=== PATIENT | female | born 1950 | race African-American/Black ===

== ENCOUNTER 2019-04-16 13:30 | Inpatient (IN) | payer OTHER ==
[~2019-04-16] VITALS: Ht 157.5 cm; Wt 75.1 kg
[2019-04-16 13:38] VITALS: BP 107/60
[2019-04-16 14:35] LABS: URINE BILIRUBIN NEGATIVE (Negative); URINE BLOOD NEGATIVE (Negative); URINE CLARITY CLEAR; URINE COLOR YELLOW; URINE GLUCOSE-RANDOM* NEGATIVE (Negative); URINE KETONES NEGATIVE (Negative); URINE LEUKOCYTES-REFLEX NEGATIVE (Negative); URINE NITRITE-REFLEX NEGATIVE (Negative); URINE PROTEIN (DIPSTICK) NEGATIVE (Negative); URINE UROBILINOGEN 0.2 E.U./dl (0.2-1.0)
[2019-04-16 14:39] LABS: ABSOLUTE NEUTROPHILS 3.9 thou/uL (1.4-8.2); BASOPHILS 0.7 % (0.0-2.0); EOSINOPHILS 2.1 % (0.0-3.0); HEMATOCRIT 34.6 % (37.0-47.0); HEMOGLOBIN 11.1 gm/dL (12.0-15.0); LYMPHOCYTES 15.7 % (24.0-44.0); MCH 24.2 pg (26.0-34.0); MCHC 32.1 g/dL (28.0-37.0); MCV 75.3 fL (80.0-100.0); PLATELET COUNT 286 thou/uL (150-400); POLYS 69.5 % (36.0-66.0); RDW 14.5 % (10.5-14.5); WBC 5.7 thou/uL (4.0-11.0)
[2019-04-16 14:50] LABS: CALCIUM 10.1 mg/dL (8.5-10.1); CREATININE 1.2 mg/dL (0.6-1.0); POTASSIUM 3.8 mmol/L (3.5-5.1)
[2019-04-16 14:55] LABS: ALBUMIN 3.6 g/dL (3.4-5.0); TOTAL BILIRUBIN 0.2 mg/dL (<0.1-1.0); TOTAL PROTEIN 7.2 g/dL (6.4-8.2)
[2019-04-16] MEDS ORDERED: CELEXA 20 MG TA20 MG PO ×3 (15:10→17:03)
[2019-04-16] MEDS ORDERED: HYDROCHLOROTHIA25 M2 PO ×2 (15:11→16:59)
[2019-04-16] MEDS ORDERED: DILTIAZEM ER180 M2 PO (15:11)
[2019-04-16] MEDS ORDERED: ESTRADIOL 1 MG T1 M1 PO ×2 (15:11→17:01)
[2019-04-16] MEDS ORDERED: KLOR-CON M2020 MEQ PO (15:12)
[2019-04-16] MEDS ORDERED: BENICAR40 MG PO (15:12)
[2019-04-16 15:25] VITALS: BP 125/63
[2019-04-16 15:38] VITALS: BP 125/63
--- NOTE | 2019-04-16 16:35 | NUR ---
Patient transported from emergency room via cart. Patient ambulatory. Patient takes medications whole. Patient in good spirits, calm and cooperative. Patient denies pain. Patient denies audible or visual hallucinations. Patient signed consents. Patients assessment reveals clear breath sounds, active bowel sounds, and s1 s2 heard upon auscultation.
[2019-04-16] MEDS ORDERED: ALPRAZOLAM XR3 MG PO (16:57)
[2019-04-16] MEDS ORDERED: LOSARTAN POTAS100 MG PO (17:00)
[2019-04-16] MEDS ORDERED: CARTIA XT300 M1 PO (17:02)
[2019-04-16] MEDS ORDERED: MULTIPLE VITAM1 EAC2 PO (17:29)
[2019-04-16] MEDS ORDERED: ATIVAN1 M1 PO (17:30)
[2019-04-16 20:10] VITALS: BP 131/53
[2019-04-16 20:11] VITALS: BP 131/53
--- NOTE | 2019-04-17 04:25 | NUR ---
1909-Report received from day shift nurse and care assumed. She was soft spoken, compliant with Vital signs, and assessment.She had no c.o. voiced, no c.o. pain, flat affect, calm. She had Ativan 1 mg. po prn at HS per her request, and she was up in the night a few times to toilet, slept well generally. Stand by assist. A/O x4.
[2019-04-17 08:06] VITALS: BP 112/47
--- NOTE | 2019-04-17 08:26 | EKG ---
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
[2019-04-17] MEDS ORDERED: PREDNISOLONE ACE5 ML RT. EYE (11:39)
[2019-04-17 16:31] LABS: FOLIC ACID 17.9 ng/mL (8.6-58.9); TSH 2.781 uIU/mL (0.358-3.740)
[2019-04-17 19:33] VITALS: BP 141/69
--- NOTE | 2019-04-17 20:36 | NUR ---
Lying in bed without s/o distress. States she is waiting for breakfast. Alert and orientated X4. Denies pain, SI/HI. Breath sounds clear t/o, bilaterally equal. Color pink with brisk capillary refill and palpable peripheral pulses. Active bowel sounds over soft, rounded abdomen. Voiding independently. Able to ambulate around unit without difficulty. 0.5 cm nodule to roof of mouth. States she has had it a long time. 0930 RT reports that patient is feeling light headed and lying on couch in day room. BP 112/47. No s/o distress with brisk capillary refill and strong pulse. Reassured and encouraged to increase PO intake. 1100 Up in unit without s/o distress. Repeat BP 110/47 with O2 sat 100% on RA when probe placed on toe. 1600 Family here visiting. States she is feeling nauseated. 4 mg ondansetron given per PRN order. Prednisilone gtt given per R eye. States she has missed a couple of days of doses. Will resume BID dosing. 1900 Up ambulating in unit and in room. No s/o distress.
--- NOTE | 2019-04-18 01:11 | NUR ---
ASSUMED CARE ON 04/17/19 @ ABOUT 19:30, UP IN CHAIR AT THE TABLE IN THE DAY ROOM. AMBULATES TO HER BEDROOM, AND THEN BACK TO THE DAY ROOM. STEADY GAIT NOTED, NO DEVISE UTILIZED. UP AD ARTUR. COOPERATED WITH ASSESSMENT AND HS MEDS. REQUESTED ANXIETY MEDS. NEW ORDER OBTAINED FOR VISTARIL 50MG PO Q 4 HOURS. ADMINISTERED @ APROXIMATELY 23:30. REPORTS HAD BM TODAY, ABD SOUNDS NORMOACTIVE X 4 Q, HRRR, LUNGS CTA. IN BED EYES CLOSED, RESPIRATIONS EVEN AND UNLABORED. BED IN LOW POSITION, BED ALARM SET, WILL CONTINUE TO MONITOR Q 12 MINUTES FOR PATIENT SAFETY.
[2019-04-18 02:13] VITALS: BP 141/69
--- NOTE | 2019-04-18 06:19 | NUR ---
SLEPT 8.8 HOURS OVERNIGHT.
[2019-04-18 07:45] VITALS: BP 148/75
--- NOTE | 2019-04-18 13:21 | NUR ---
HAS BEEN WITHDRAWN TO ROOM FOR MAJORITY OF SHIFT-DID COME OUT FOR PM GROUP WITH PROMPTING. COOPERATIVE-AFFECT CONSTRICTED-SOMEWHAT GUARDED DURING 1;1 INTERACTION WITH THIS RN-DENIES SI/SH/HI-RATES ANXIETY "ABOUT A 4" ON 1-10 SCALE AND DENIES NEED FOR PRN VISTARIL WHEN OFFERED WITH AM MEDICATIONS. BP WNL AND IS COOOPERATIVE WITH TAKING SCHEDULED BP MEDICATIONS, GAIT STEADY WITHOUT ASSISITIVE DEVICES. ATE FAIR AT BREAKFAST BUT AT APPROX 1045 REQUESTED ZOFRAN FO4 NAUSEA-ZOFRAN 4MGODT GIVEN AND DOES REPORT DECCREASED NAUSEA IN APPROX 30 MINUTES UPON REASSESS.
--- NOTE | 2019-04-18 17:09 | NUR ---
Pt's son Judah's phone number is incorrect in the system. The correct number is [phone]. KENNETH contacted Judah and received background information. Pt is and has been since 1992. She has 2 sons; one son (Stanley) her relationship is estranged from. 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 She has a close relationship with her granddaughter Dodie. 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 She also is very involved in her restoration; the restoration she practices is Zoroastrianism. She has her Master's degree, and has 4 other siblings. Judah is planning to take his mom to live with him upon discharge. KENNETH scheduled a family meeting for 04/22 @ 0570. KENNETH team will continue to follow pt during her stay.
[2019-04-18 19:25] VITALS: BP 114/62
--- NOTE | 2019-04-18 19:58 | NUR ---
ASSUMED CARE ON 04.18.19 @ APROXIMATELY 19:15, IN BED AWAKENS TO VOICE. COOPERATES WITH ASSESSMENT, HRRR, LUNGS CTA, ABD N X 4 Q REPORTS BM GTODAY. DENIES SI AND HI, SAYING NEVER. DENIES HALLUCINATIONS, BOTH VH AND AH WELL PAIN. REPORTS ANXIETY IS MANAGEABLE. WE DISCUSSED THE MEDICATION CHANGE MADE TODAY, AND PT DENIES ANY ADVERSE EFFECTS TO MEDS. LAID BACK DOWN IN BED AFTER ASSESSMENT, AND REQUESTED THE LIGHTS BE TURNED OFF, WHICH WAS DONE.
[2019-04-19 00:19] VITALS: BP 114/62
--- NOTE | 2019-04-19 05:16 | NUR ---
SLEPT 11 HOURS OVERNIGHT. EXPERIENCED NAUSEA AND REQUESTED ZOFRAN 4MG ODT, WHICH WAS PROVIDED AND A STOOL SOFTENER.
[2019-04-19 09:21] VITALS: BP 151/77
--- NOTE | 2019-04-19 16:59 | NUR ---
Up ambulating in unit without s/o distress. States she is nauseated off and on. Very upset this AM because she was told it was 15 and she thought she missed her son's birthday. Once told it was 04/19 she calmed down and stated that she wanted to follow the program and get better. Alert and orientated X 4. Compliant with meds. Denies pain, SI/HI. Breath sounds clear t/o, bilaterally equal. Reg HR auscultated. Color pink with brisk capillary refill and palpable peripheral pulses. Voiding independently. Active bowel sounds over soft, rounded abdomen. Eye drop instilled per R eye without diff. 1500 Sw changed privacy code to 3770 d/t family/pt request. States relative received code that they should not have. 1700 Sitting at table eating dinner without s/o distress.
[2019-04-19 19:46] VITALS: BP 115/76
--- NOTE | 2019-04-19 22:46 | H ---
[facility] [place] [address] HISTORY AND PHYSICAL Name: MADELAINE SERVIN Room #: 528A-A ADM IN M.R.#: [id number] Admission: 04/16/19 Attend Phys: Derek Hernandez DO Discharge: Date of : 50 Report #: [id number] THIS REPORT FOR: //name// CC: Derek Hernandez Sedrick Donahuelauro DATE OF SERVICE: 04/17/2019 INPATIENT PSYCHIATRIC EVALUATION ATTENDING PHYSICIAN: Derek Hernandez DO. EMERGENCY MEDICINE PHYSICIAN: Tri Forbes APRN. REASON FOR ADMISSION: Increasing depression, difficulty with daily functioning, and concerns for an emerging major neurocognitive disorder. SOURCES OF INFORMATION: Emergency room records, interview with the patient, telephone conversation with the sonJudah, and office records from Dr. Graff. HISTORY OF PRESENT ILLNESS: This is a 69-year-old female, who is having her first admission on a senior behavioral health unit at [facility]. The patient reports that she has had a roughly 1-week history of nausea, weakness, and inability to recover. She is rather vague on accompanying symptoms. The patient was seen 04/15/[address] Graff. On his visit, there was intense nausea, concerns about memory, depression, anxiety, and dizziness and was given Zofran and potassium in the emergency room. CURRENT MEDICATIONS: Ativan 1 mg p.o. at bedtime for sleep, citalopram hydrobromide 20 mg p.o. daily, hydrochlorothiazide 25 mg p.o. daily, losartan potassium 100 mg p.o. daily, Cartia 300 mg XR 24-hour capsule daily, and CoQ. Additional information from the ER assessment, severe anxiety, panic attacks to the point feels like she is going to , so goes to ER. LABORATORY DATA: From the 04/15/2019, creatinine 1.2, EGFR 57.4. Sodium 138, potassium 3.3, chloride 99, and bicarbonate 24. Protein is 7.7, alkaline phosphatase 65, AST 18, and ALT 14. B12 1734. Folate 16.8. TSH 1.57. Sed rate 20. H and H is 7.6 and 36.4, white count is 6.4, and platelet count 336. Urinalysis was negative. Additional information from our ER, the patient reports decreased appetite, but states her son has been having her drink protein shakes. Son reports that this is her third ER visit and lab results have all been normal. The patient denies any recent trauma or significant distress. She states "it kind of came out of [address] [address] HISTORY AND PHYSICAL Name: MADELAINE SERVIN Room #: [address] [place] [address] [place] .R.#: [id number] Admission: 04/16/19 Attend Phys: Derek Hernandez DO Discharge: Date of : 50 Report #: [id number]." She reports she has been having trouble with memory loss. The son states the memory loss dates back at least a year. She states it is frustrating, but not sure "if it is frustrating enough to make me feel as depressed." The patient's son states the physician started her on citalopram 5 days ago. On interview today, she denied suicidal or homicidal ideation or auditory, visual, or tactile hallucinations. I performed the Geriatric Depression Scale. She was positive for 5 which would be indicative of a mild depression at most. I performed a [facility] Mental Status examination. The patient scored a 12/30, so she is in moderate dementia range on that. I explained to the patient that this would warrant further workup with the neuropsychologist. The son states that lab work and neuroimaging has been done by her primary care physician and other ERs. PAST MEDICAL HISTORY: Includes hypertension, depression, and bilateral cataract removal. She is currently on prednisolone acetate for the inflammation post-surgery. This is in her right eye. REVIEW OF SYSTEMS: From ER: CONSTITUTIONAL: Negative for fever or chills. EYES: Negative for eye pain or visual change. HENT: Negative for rhinorrhea or sore throat. RESPIRATORY: Negative for cough or shortness of breath. CARDIOVASCULAR: Negative for chest pain or palpitations. GASTROINTESTINAL: Negative for abdominal pain, vomiting, or diarrhea. GENITOURINARY: Negative for burning, urgency, frequency, or hematuria. MUSCULOSKELETAL: Negative for back pain or muscle pain. SKIN: Negative for any rashes. NEUROLOGICAL: Negative for numbness, tingling, or weakness. Otherwise, 10-point review of systems was negative. EKG in the ER was sinus rhythm, rate of 64, normal axis, and no acute changes. Laboratories from our ER, sodium 141, potassium 3.8, chloride 103, bicarbonate 27, estimated GFR 54, glucose 108, calcium 10.1, total bilirubin is 0.2, AST 15, ALT 25, albumin 3.6, total protein is 7.2, and lipase 171. White count 5.7, H and H 7.1 and 34.6, and platelet count 286,000. Urinalysis was negative. SOCIAL HISTORY: Denied alcohol, tobacco, or recreational drug use in the past. Reports she has a master's degree. 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 Unclear how long she has been retired. She has several children, several other siblings. I believe she is , but not 100% on that. PHYSICAL EXAMINATION: Slow gait. Normal station. [facility] [address] [place] [address] HISTORY AND PHYSICAL Name: MADELAINE SERVIN Room #: 528A-A ADM IN M.R.#: [id number] Admission: 04/16/19 Attend Phys: Derek Hernandez DO Discharge: Date of : 50 Report #: [id number] MENTAL STATUS EXAMINATION: This is a well-developed and slightly disheveled black female, appearing at least stated age. Attention limited. Concentration limited. Speech slow and normal volume. Thought process is linear and goal directed. Thought content, relative poverty of thought. Some psychomotor retardation. No psychomotor agitation. Mood was down. Affect congruent, constricted, and diminished range. Denied SI or HI. Denied hopelessness and helplessness. Denied the homicidal intent or plan. Memory impaired as she only got 2/5 on 5-item recall. She had other impairments in attention and executive function for a total score of 12/30 on [facility] Mental Status exam. FORMULATION: A 69-year-old black female, brought by son in the emergency room after office visit with Dr. Graff. Case is suspicious for an evolving major neurocognitive disorder. 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 Comorbidities include nausea, acute renal failure and holding hydrochlorothiazide, constipation, hypertension, recent cataract surgery 02/2019, thought it was more recent. PLAN: Evaluate, stabilize, and obtain collateral. According to the son, routine dementia labs and head imaging have already been done. I will put in a consultation for Dr. Ward for neuropsychological testing. I warned the son that the base outcome of this admission may just be the need for a 24/7 assistance and care. Time spent on interview, evaluation, review of records, and coordination of care is at least 60 minutes. STRENGTHS: She is insured, supportive family. WEAKNESSES: Advancing age, likely neurodegenerative disorder. <ELECTRONICALLY SIGNED> By: Derek Hernandez DO 04/19/19 2246 [id number] 1747 Derek Hernandez DO /nt
--- NOTE | 2019-04-19 23:31 | NUR ---
PATIENT APPROACHED THE NURSES STATION REQUESTING PRN NAUSEA MEDICATION. THIS NURSE ADMINISTERED ORDERED. THIS NURSE INQUIRED WHAT TRIGGERS PATIENTS NAUSEA SX. THIS NURSE ASKED, ANXIETY, PAIN? PATIENT RESPONDED "IM NOT SURE ITS KIND OF WHY I AM HERE." WILL CONTINUE TO MONITOR PATIENT.
--- NOTE | 2019-04-20 01:15 | NUR ---
Care assumed of patient at 1915: Patient sleeping in bed at start of shift. Patient easily aroused. Woke up for nursing assessment with no issue. Calm, pleasant and cooperative. Alert and oriented x3. Disoriented to current situation. Patient states that she has been having difficulty with nausea and so she was admitted to the hospital to be "worked up". Patient denies any anxiety or depression. Denies SI/HI/AH/VH. No s/s of delusional or paranoia behaviors. Originally denied nausea during assessment but approached nurses station at approximately 2320 to report nausea but denied any vomiting. Requested PRN Zofran and was provided at 2329. Patient took HS medication whole without difficulty. Presented with flat, blunted affect. Poor eye contact. Isolative and withdrawn to her room this evening. Declined HS snack. Denies pain or discomfort. Patient has been able to rest quietly this shift.
[2019-04-20 05:39] VITALS: BP 147/69
[2019-04-20 09:06] VITALS: BP 135/69
--- NOTE | 2019-04-20 14:54 | NUR ---
LESS WITHDRAWN THIS SHIFT COMPARED TO PREVIOUS DAYS ON UNIT-CAME OUT OF ROOM WITH 1 PROMPT FOR AM GROUP AND STAYED OUT FOR CHIEFS GAME THIS PM. INCREASE IN SPONTANEOUS SMILING AND EXPRESSION STATING "I REALLY LIKE WATCHING THE FOOTBALL GAMES"DURING AM ASSESSMENT DENIES C/O PAIN/DISCOMFORT. NO REPORTED NAUSEA OR BOWEL ISSUES OTHER THAN TO STATE "I WENT A LOT-I DON'T THINK I NEED TO GO FOR AWHILE" DOES REPORT SHE BELIEVES IT IS WHEN HER ESTRADIAL WAS STOPPED THAT DEPRESSION AND ANXIETY BECAME PROBLEMATIC-"I HAD TO BEG TO GET EVEN A LITTLE BACK BUT IT ISN;T ENOUGH"
[2019-04-20 19:54] VITALS: BP 149/79
[2019-04-20 22:44] VITALS: BP 149/79
--- NOTE | 2019-04-21 04:15 | NUR ---
PT ISOLATED IN ROOM FOR THE BULK OF THE EVENING. QUIET AND COOPERATIVE. PROVIDED EYE DROPS AT HS. SLEPT WELL THROUGH THE NIGHT W/O PROBLEM. SEEMS DEPRESSED BUT DID SMILE ONE TIME SPONTANEOUSLY, WHE WE WERE CHATTING.
--- NOTE | 2019-04-21 07:00 | NUR ---
Assumed care of patient this am. Patient in bedroom resting. Patient states that she was having some nausea. Patient ambulates without assistance. Patient takes medications whole. Patients affect is soft and happy. Patients assessment reveals clear breath sounds, hypoactive bowel sounds, and s1 s2 heard with auscultation.
[2019-04-21 07:30] VITALS: BP 152/77
[2019-04-21 07:57] VITALS: BP 152/77
[2019-04-21 14:32] LABS: POTASSIUM 3.4 mmol/L (3.5-5.1)
[2019-04-21 19:41] VITALS: BP 115/50
[2019-04-21 20:00] VITALS: BP 115/50
--- NOTE | 2019-04-22 02:02 | NUR ---
PATIENT WAS AWOKEN SUDDENLY FROM A LOUD NOISE AT 1914 LAST NIGHT. SHE STATES SHE BECAME IMMEDIATELY NAUSEATED. ZOFRAN 4MG DISINGRATING PILL GIVEN AND SOME LEMON [facility] SODA FOR SMALL SIPS. SHE FELT BETTER AFTER 20-30 MINUTES. PATIENT IS ANXIOUS ABOUT HER FUTURE AND WAS UPSET BECAUSE SHE DID NOT FEEL SHE DID WELL ON SOME COGNITIVE TESTING DONE TODAY. SHE IS CONCERNED ABOUT HER MEMORY AND HER HORMONES. I SAT AND LISTENED AND SPOKE WITH PATIENT TO REASSURE AND ENCOURAGE HER IN TAKING THINGS A STEP AT A TIME AND THAT NOTHING HAS BEEN DECIDED FOR HER FUTURE YET. SHE WORRIES ABOUT HER FAMILY ALSO. WE DISCUSSED AND SHARED HER EILEEN AND HER NEED TO TURN THINGS OVER TO GOD BECAUSE WORRYING WAS GOING TO MAKE HER MORE ANXIOUS AND NOT HELP HER COGNITION ISSUES. SHE FELT MUCH BETTER AND THANKED ME FOR SPENDING TIME WITH HER. SHE LATER AWOKE AROUND 2229 WITH C/O NAUSEA AGAIN. PATIENT GIVEN PRN FAMATODINE 20MG AND PLACED COOL RAG UNDER HER HEAD. SHE HAS HAD BM TODAY AND DOES HAVE ACTIVE BOWEL SOUNDS. NO FEVER. NO TENDERNESS TO ABDOMEN. PATIENT FELL BACK TO SLEEP AND CONTINUES TO SLEEP. PATIENT IS A/0X4 AND IS VERY ALERT AND HAS BEEN COOPERATIVE AND PLEASANT. SHE IS INDEPENDENT AND AMBULATES TOLERATED. WILL CONTINUE TO MONITOR.
--- NOTE | 2019-04-22 04:08 | NUR ---
PATIENT CAME TO NURSE AT 0245 SAYING SHE WAS FEELING NAUSEOUS AGAIN. CRACKERS AND LEMONLIME SODA GIVEN TO PATIENT IN DINING ROOM. SAT AND LISTENED TO PATIENT. SHE STATES SHE THINKS THAT SHE THINKS ANTICIPATING WHAT IS GOING TO BE DECIDED AND SAID IN HER FAMILY MEETING IS CAUSING HER TO BE ANXIOUS. THIS NURSE PRAYED WITH PATIENT PER HER OK AND WE TALKED ABOUT HOW TO CALM HER ANXIETY AND DISCUSSED HER FEARS AND CONCERNS. ZOFRAN 4MG GIVEN TO PATIENT AT 0410 AND PATIENT BACK TO BED. WILL CONTINUE TO MONITOR.
[2019-04-22 08:59] VITALS: BP 142/82
--- NOTE | 2019-04-22 09:31 | NUR ---
ASSUMED CARE AT 0715 ON 04/22/19. PATIENT STATES "I WAS NAUSEATED LAST NIGHT BUT FEELING BETTER. HOPING TO BE ABLE TO GO HOME AFTER FAMILY MEETING, I KNOW I CAN DO THIS". PATIENT REQUEST TO GET IN SHOWER BEFORE THE FAMILY MEETING. 0720 PATIENT IN SHOWER THEN OUT TO DAYROOM FOR BREAKFAST. PATIENT FEELS BETTER WITH NO COMPLAINTS OF NAUSEA, BELIEVES SHE IS DOING BETTER DO TO HAVING A BM. DENIES SI/HI AND AVH. STATES NERVOUS FOR FAMILY MEETING. 0850 SITTING IN DAYROOM PARTICIPATING IN RECREATIONAL THERAPY GROUP.
--- NOTE | 2019-04-22 16:16 | NUR ---
AT 1530 PATIENT APPROCHES JEWEL INSERTER AND STATES "I AM GOING HOME AND IM SO HAPPY" SHE GOES ON SAYING HOW EVERYONE HAS BEEN SO WONDERFUL IN HELPING HER. WHEN ASKED IF SHE HAD PAIN OR ANY NAUSEA PATIENT DENIES. SHE STATES "I WAS ABLE TO GO LAY DOWN AND REST A BIT AFTER FINDING OUT IM GOING HOME TOMORROW, I AM NOT ANXIOUS NOW. PATIENT TO DAYROOM AND SITS AT TABLE FOR A WHILE. PATIENT SMILING AND APPEARS TO BE HAPPY AND EXCITED.
[2019-04-22 17:00] VITALS: BP 113/66
[2019-04-22 19:47] VITALS: BP 115/62
--- NOTE | 2019-04-23 00:56 | NUR ---
1909-Report received from day shift. She had a broad smile talking about discharge tomorrow she said. "I'm about to go crazy here". She was appropriate and A/O x 3, calm and slept well thus far tonite.
--- NOTE | 2019-04-23 05:19 | NUR ---
Patient has been up several times this shift. Broken sleep noted. Patient reported to nurses station stating she needed a stool softener. Educated patient that she received her stool softener earlier in the shift and she receives it twice a day. Patient happy with education and returned to her room. Approximately 45 minutes later, patient reported to the nurses station stating she needed medication for her stomach. Patient educated on side effect of Zofran being constipation. Patient then requested a lemon-pit river soda. This was provided which patient was appreciative of. Patient continues to be restless, in and out of bed, to the bathroom several times. No vomiting observed or reported at this time.
[2019-04-23 08:02] VITALS: BP 137/76
[2019-04-23 11:40] VITALS: BP 137/76
[2019-04-23] MEDS ORDERED: AMLODIPINE BESY10 MG PO (11:46)
[2019-04-23] MEDS ORDERED: SEROQUEL 25 MG25 M1 PO (11:47)
[2019-04-23] MEDS ORDERED: SENNA-TIME S T1 EACH PO (11:48)
--- NOTE | 2019-04-23 13:15 | NUR ---
DISCHARGE INSTRUCTIONS REVIEWED WITH PATIENT AND SON EL INCLUDING DISCHARGE MEDICATIONS DOSES,INDICATIONS AND TIMES DUE-FOLLOW UP RECOMMENDATIONS AND HOME HEALTH RX ,RX EYE DROPS BROUGHT IN RETURNED ALONG WITH ALL OTHER PERSONAL BELONGINGS. PT IS ALERT AND ORIENTED AT TIME OF DC-DENIES SI/SH/HI. DOES REPORT FEELING ANXIOUS ABOUT DC BUT "READY TO GO" DC ACCOMPNIED BY SON AND PATHOLOGY TECH AMBUALTORY TO SONS CAR.
--- NOTE | 2019-04-23 13:58 | NUR ---
Yesterday KENNETH attended a family meeting with Judah and the psych doctor. Judah said he is needing assistance locating outpatient psychiatric services for his mother. He also said his mom has LTC insurance so he will be calling them to see if they also cover in home services. The team agreed that pt will go home with Judah for a couple weeks so he can monitor if she will be safe at home with a care attendant. KENNETH contacted [facility] to make an appt for pt. KENNETH was told this group does not have any doctors who accept Medicare. SW team will continue to follow pt during her stay.
--- NOTE | 2019-04-23 14:00 | NUR ---
KENNETH D/C note SW contacted [facility] outpatient psych services and they do not have doctors who accept Medicare. KENNETH contacted [facility] and they do not have an appt until August for psychiatry. KENNETH contacted [facility] to see if pt is in their [facility] and she is; however, they do not have a psychiatrist on staff at this time. KENNETH reviewed pt's insurance website ([employer]) and located private psych docts that accept Human. KENNETH also located docts who accept Medicare for insurance. KENNETH emailed this information to Judah and asked him to let her know if there was anthing else she can assist with. No other needs for KENNETH team to address at this time.
--- NOTE | 2019-04-24 22:08 | D ---
[facility] [place] [address] DISCHARGE SUMMARY Name: MADELAINE SERVIN Room #: 528A-A [facility] M.R.#: [id number] Admission: 04/16/19 Attend Phys: Derek Hernandez DO Discharge: 04/23/19 Date of : 50 Report #: [id number] THIS REPORT FOR: //name// CC: Derek Hernandez Sedrick Busby DATE OF SERVICE: 04/23/2019 INPATIENT PSYCHIATRIC DISCHARGE SUMMARY ATTENDING PHYSICIAN: Derek Hernandez DO. AIR HOLE DRILLER AT THE TIME OF DISCHARGE: Jenni Khoury MD DISCHARGE DIAGNOSIS: Mild neurocognitive disorder. ADDITIONAL PSYCHIATRIC DIAGNOSIS: Unspecified anxiety disorder. REASON FOR ADMISSION: Back on 04/16/2019 was nausea, near syncopal episodes, unsteady gait, feeling very depressed, complaints of memory loss. MEDICAL COMORBIDITIES AT THE TIME OF DISCHARGE: Hypertension; acute renal failure, resolved; hypokalemia; hypercalcemia. Hydrochlorothiazide discontinued. Discharge location is her son, Justyna ramirez. The social sciences research scientist at the time of discharge was unable to schedule an outpatient psychiatrist visit, so they have been referred to the [facility]. The patient is encouraged to follow up with primary care physician in 1 month. Also, she needs to establish with a psychotherapist. Diet is regular. Activity level is as tolerated. No alcohol, no illicit drugs. LABORATORY DATA: This admission, H and H 11.1 and 34.6, white count 5.7, platelet count 286. Chemistries showed B12 level 1363. Folate 17.9. TSH 2.781. Calcium slightly elevated at 11, potassium 3.4. DISCHARGE MEDICATIONS: Given a prescription for odansetron 15 tabs of dissolvable; also amlodipine 10 mg p.o. daily, Rx given for #30; Seroquel 25 mg at noon and 6 p.m., Rx given for #60 for anxiety; senna, docusate 1 tablet p.o. b.i.d., continue citalopram 20 mg p.o. daily for anxiety, estradiol 1 mg p.o. daily for hormone replacement, losartan 100 mg p.o. daily for hypertension, and multivitamin 1 tab p.o. daily. PHYSICAL EXAMINATION: VITAL SIGNS: Temperature 37.1, pulse 89, respirations 18, BP 137/76. MUSCULOSKELETAL: Normal gait and station. [address] [address] DISCHARGE SUMMARY Name: MADELAINE SERVIN KAUR Room #: 528A-A [facility]#: [id number] Admission: 04/16/19 Attend Phys: Derek Hernandez DO Discharge: 04/23/19 Date of : 50 Report #: [id number] MENTAL STATUS EXAMINATION: This is a well-developed, fairly nourished black female, appearing stated age. Attention intact. Concentration intact. Speech is normal in rate, rhythm, and tone. Thought process is linear and goal oriented. Thought content focused on discharge. No psychomotor agitation or psychomotor retardation. Denied SI or HI. Denied hopelessness, helplessness. Memory not formally tested. Insight, fair to limited. Judgment fair. Fund of knowledge, average. HOSPITAL COURSE: The patient was admitted to Geriatric Psychiatry Unit. The patient scored a 12/30 on her SLUMS. Neuropsychology was consulted. Probably on the screener, her score is depressed that she did have some deficits in memory, visual-spatial ability of the PAMELLA test was done by OT, which showed some impairment and safety awareness 1/4 pictures. We had a couple of family meetings. A decision was made to discharge to her son's and in then May look to roughly 8 hours a day of home health aide. Prognosis for this patient is guarded. <ELECTRONICALLY SIGNED> By: Derek Hernandez DO 04/24/19 [id number] Derek Hernandez DO /nt
== END 2019-04-23 13:21 | disposition home health service (06) | DRG 884 ==
LOC: ER 13:30 → SBH 16:46
PROVIDERS: Hospitalist; Nurse Practitioner; Physician Assistant; ADMIT Psychiatry & Neurology Psychiatry
DX: F01.50 Vascular dementia, unspecified severity, without behavioral disturbance, psychotic disturbance, mood disturbance, and anxiety (principal); N17.9 Acute kidney failure, unspecified; I10 Essential (primary) hypertension; F32.9 Major depressive disorder, single episode, unspecified; F41.9 Anxiety disorder, unspecified; E87.6 Hypokalemia; E83.52 Hypercalcemia; K59.00 Constipation, unspecified; F41.0 Panic disorder [episodic paroxysmal anxiety]; R19.7 Diarrhea, unspecified; Z98.42 Cataract extraction status, left eye; Z98.41 Cataract extraction status, right eye; Z88.1 Allergy status to other antibiotic agents; Z90.710 Acquired absence of both cervix and uterus
CPT/HCPCS: 10880